=== PATIENT | male | born 1985 | race African-American/Black ===

== ENCOUNTER 2022-04-20 11:51 | Inpatient (IN) | payer OTHER ==
[2022-04-20 12:54] VITALS: BMI 23.0
[2022-04-20] MEDS ORDERED: guaiFENesin 200 MG/10 ML 10 ML UNIT-DOSE CUPS PO PRN (13:17)
[2022-04-20] MEDS ORDERED: MAG HYDROX/AL HYDROX/SIMETH 30 ML UNIT-DOSE CUP PO PRN (13:17)
[2022-04-20] MEDS ORDERED: P-EPHED 60MG/TRIPROLIDI 2.5MG TABLET PO PRN (13:17)
[2022-04-20] MEDS ORDERED: NICOTINE 10 MG CARTRIDGE (INHALER) IH PRN (13:17)
[2022-04-20] MEDS ORDERED: ACETAMINOPHEN 325 MG TABLET (FP) PO PRN (13:17)
[2022-04-20] MEDS ORDERED: BENZOCAINE/MENTHOL (CHLORASEPTIC ) LOZENGE MM PRN (13:17)
[2022-04-20] MEDS ORDERED: IBUPROFEN 400 MG TABLET (FP) PO PRN (13:17)
[2022-04-20] MEDS ORDERED: LOPERAMIDE HCL 2 MG CAPSULE PO PRN (13:17)
[2022-04-20] MEDS ORDERED: POLYETHYLENE GLYCOL (HEALTHYLAX) 3350 17 GM PACKET PO PRN (13:17)
[2022-04-20] MEDS ORDERED: MAGNESIUM HYDROX 2400MG/30ML ORAL SUSPENSION 30 ML CUP PO PRN (13:17)
[2022-04-20] MEDS ORDERED: TUBERCULIN PPD 5 TU/0.1ML VIAL ID ONE (18:59)
[2022-04-20] MEDS: PRENATAL VITAMINS W/ FOLIC ACID TABLET (FP) PO SCH (19:10)
[2022-04-20] MEDS: THIAMINE HCL 100 MG TABLET (FP) PO SCH (21:53)
[2022-04-20] MEDS: MELATONIN 5 MG TABLETS PO SCH (21:53)
[2022-04-21] MEDS: PRENATAL VITAMINS W/ FOLIC ACID TABLET (FP) PO SCH (09:56)
[2022-04-21] MEDS ORDERED: PATIENT'S OWN MEDICATION (NON-FORMULARY) (Dolutegravir Sodium/Lamivudine [Dovato 50-300 Mg PO SCH (10:45)
[2022-04-21 11:28] LABS: HEMATOCRIT 40.5 % (35.4-49); HEMOGLOBIN 13.7 GM/dL (11.7-16.9); MCH 29.8 pg (25.7-33.7); MCHC 33.9 g/dl (32.0-35.9); MEAN CELL VOLUME 88.1 fl (80-96); PLATELET COUNT 298 10^3/uL (134-434); RDW 14.8 % (11.9-15.9); WHITE BLOOD COUNT 4.2 K/mm3 (4.0-10.0)
[2022-04-21 11:38] LABS: CALCIUM 8.9 mg/dL (8.5-10.1)
[2022-04-21 11:39] LABS: ALBUMIN 3.4 g/dl (3.4-5.0); BLOOD UREA NITROGEN 9.8 mg/dL (7-18)
[2022-04-21 11:43] LABS: BILIRUBIN,TOTAL 0.7 mg/dL (0.2-1); TOT PROT 6.6 g/dl (6.4-8.2)
[2022-04-21] MEDS ORDERED: DOLUTEGRAVIR SODIUM 50 MG TABLET (NON-FORMULARY) PO ONE (12:00)
[2022-04-21 12:05] LABS: SYPHILIS W/ RPR CONF NON-REACTIVE (NONREACTIVE)
[2022-04-21] MEDS: FLUoxetine HCL 20 MG CAPSULE PO SCH (12:08)
[2022-04-21] MEDS: HYDROCHLOROTHIAZIDE 12.5 MG CAPSULE (FP) PO SCH (12:08)
[2022-04-21] MEDS: PROGESTERONE PO SCH (12:38)
[2022-04-21] MEDS: [UNRECOGNIZED DRUG - OTHER] PO SCH (12:38)
[2022-04-21 17:43] LABS: EPI CELLS >36 /uL (0-25.1); HYALINE CASTS 25 /uL (0-3.1); PH,URINE 5.5 (5.0-8.0); URINE APPEARANCE CLOUDY; URINE BACTERIA 1378 /uL (0-1359); URINE BILIRUBIN NEGATIVE (NEGATIVE); URINE COLOR YELLOW; URINE GLUCOSE (UA) NEGATIVE (NEGATIVE); URINE KETONE TRACE (NEGATIVE); URINE LEUK ESTERASE 1+ (NEGATIVE); URINE NITRITE NEGATIVE (NEGATIVE); URINE PROTEIN 1+ (NEGATIVE); URINE RBC 15 /uL (0-23.9); URINE UROBILINOGEN 0.2 mg/dL (0.2-1.0); URINE WBC 357 /uL (0-25.8)
[2022-04-21] MEDS: MELATONIN 5 MG TABLETS PO SCH (21:46)
[2022-04-21] MEDS: THIAMINE HCL 100 MG TABLET (FP) PO SCH (21:46)
[2022-04-21] MEDS: hydrOXYzine PAMOATE 25 MG CAPSULE (FP) PO PRN (21:47)
[2022-04-22] MEDS: DOLUTEGRAVIR SODIUM 50 MG TABLET (NON-FORMULARY) PO SCH (07:02)
[2022-04-22] MEDS: [UNRECOGNIZED DRUG - OTHER] PO SCH (10:33)
[2022-04-22] MEDS: PRENATAL VITAMINS W/ FOLIC ACID TABLET (FP) PO SCH (10:33)
[2022-04-22] MEDS: PROGESTERONE PO SCH (10:33)
[2022-04-22] MEDS: HYDROCHLOROTHIAZIDE 12.5 MG CAPSULE (FP) PO SCH (10:33)
[2022-04-22] MEDS: FLUoxetine HCL 20 MG CAPSULE PO SCH (10:34)
[2022-04-22] MEDS: THIAMINE HCL 100 MG TABLET (FP) PO SCH (21:39)
[2022-04-22] MEDS: MELATONIN 5 MG TABLETS PO SCH (21:39)
[2022-04-22] MEDS: hydrOXYzine PAMOATE 25 MG CAPSULE (FP) PO PRN (21:39)
[2022-04-23] MEDS: DOLUTEGRAVIR SODIUM 50 MG TABLET (NON-FORMULARY) PO SCH (07:02)
[2022-04-23] MEDS: FLUoxetine HCL 20 MG CAPSULE PO SCH (10:15)
[2022-04-23] MEDS: PRENATAL VITAMINS W/ FOLIC ACID TABLET (FP) PO SCH (10:15)
[2022-04-23] MEDS: PROGESTERONE PO SCH (10:16)
[2022-04-23] MEDS: HYDROCHLOROTHIAZIDE 12.5 MG CAPSULE (FP) PO SCH (10:16)
[2022-04-23] MEDS: [UNRECOGNIZED DRUG - OTHER] PO SCH (10:16)
[2022-04-23] MEDS: hydrOXYzine PAMOATE 25 MG CAPSULE (FP) PO PRN (21:38)
[2022-04-23] MEDS: MELATONIN 5 MG TABLETS PO SCH (21:38)
[2022-04-23] MEDS: THIAMINE HCL 100 MG TABLET (FP) PO SCH (21:38)
[2022-04-24] MEDS: DOLUTEGRAVIR SODIUM 50 MG TABLET (NON-FORMULARY) PO SCH (07:09)
[2022-04-24] MEDS: HYDROCHLOROTHIAZIDE 12.5 MG CAPSULE (FP) PO SCH (09:55)
[2022-04-24] MEDS: PROGESTERONE PO SCH (09:55)
[2022-04-24] MEDS: [UNRECOGNIZED DRUG - OTHER] PO SCH (09:55)
[2022-04-24] MEDS: PRENATAL VITAMINS W/ FOLIC ACID TABLET (FP) PO SCH (09:55)
[2022-04-24] MEDS: FLUoxetine HCL 20 MG CAPSULE PO SCH (09:55)
[2022-04-24] MEDS: MELATONIN 5 MG TABLETS PO SCH (21:42)
[2022-04-24] MEDS: THIAMINE HCL 100 MG TABLET (FP) PO SCH (21:43)
[2022-04-25] MEDS: DOLUTEGRAVIR SODIUM 50 MG TABLET (NON-FORMULARY) PO SCH (10:54)
[2022-04-25] MEDS: PRENATAL VITAMINS W/ FOLIC ACID TABLET (FP) PO SCH (10:55)
[2022-04-25] MEDS: HYDROCHLOROTHIAZIDE 12.5 MG CAPSULE (FP) PO SCH (10:55)
[2022-04-25] MEDS: [UNRECOGNIZED DRUG - OTHER] PO SCH (10:55)
[2022-04-25] MEDS: FLUoxetine HCL 20 MG CAPSULE PO SCH (10:55)
[2022-04-25] MEDS: PROGESTERONE PO SCH (10:55)
[2022-04-25] MEDS: MELATONIN 5 MG TABLETS PO SCH (21:22)
[2022-04-25] MEDS: THIAMINE HCL 100 MG TABLET (FP) PO SCH (21:22)
[2022-04-26] MEDS: DOLUTEGRAVIR SODIUM 50 MG TABLET (NON-FORMULARY) PO SCH (07:04)
[2022-04-26] MEDS: FLUoxetine HCL 20 MG CAPSULE PO SCH (10:14)
[2022-04-26] MEDS: HYDROCHLOROTHIAZIDE 12.5 MG CAPSULE (FP) PO SCH (10:14)
[2022-04-26] MEDS: PRENATAL VITAMINS W/ FOLIC ACID TABLET (FP) PO SCH (10:14)
[2022-04-26] MEDS: [UNRECOGNIZED DRUG - OTHER] PO SCH (10:17)
[2022-04-26] MEDS: PROGESTERONE PO SCH (10:17)
[2022-04-26] MEDS: MELATONIN 5 MG TABLETS PO SCH (21:35)
[2022-04-26] MEDS: THIAMINE HCL 100 MG TABLET (FP) PO SCH (21:35)
[2022-04-27] MEDS: DOLUTEGRAVIR SODIUM 50 MG TABLET (NON-FORMULARY) PO SCH (07:01)
[2022-04-27] MEDS: PRENATAL VITAMINS W/ FOLIC ACID TABLET (FP) PO SCH (10:20)
[2022-04-27] MEDS: [UNRECOGNIZED DRUG - OTHER] PO SCH (10:21)
[2022-04-27] MEDS: PROGESTERONE PO SCH (10:21)
[2022-04-27] MEDS: FLUoxetine HCL 20 MG CAPSULE PO SCH (10:21)
[2022-04-27] MEDS: HYDROCHLOROTHIAZIDE 12.5 MG CAPSULE (FP) PO SCH (10:21)
[2022-04-27] MEDS: MELATONIN 5 MG TABLETS PO SCH (21:38)
[2022-04-27] MEDS: THIAMINE HCL 100 MG TABLET (FP) PO SCH (21:38)
[2022-04-28] MEDS: DOLUTEGRAVIR SODIUM 50 MG TABLET (NON-FORMULARY) PO SCH (07:14)
[2022-04-28] MEDS: PRENATAL VITAMINS W/ FOLIC ACID TABLET (FP) PO SCH (10:27)
[2022-04-28] MEDS: HYDROCHLOROTHIAZIDE 12.5 MG CAPSULE (FP) PO SCH (10:27)
[2022-04-28] MEDS: FLUoxetine HCL 20 MG CAPSULE PO SCH (10:27)
[2022-04-28] MEDS: ESTRADIOL 2 MG TABLET (NON-FORMULARY) PO SCH (12:23)
[2022-04-28] MEDS: PROGESTERONE PO SCH (12:24)
[2022-04-28] MEDS: [UNRECOGNIZED DRUG - OTHER] PO SCH (12:24)
[2022-04-28] MEDS: MELATONIN 5 MG TABLETS PO SCH (21:31)
[2022-04-28] MEDS: THIAMINE HCL 100 MG TABLET (FP) PO SCH (21:31)
[2022-04-29] MEDS: DOLUTEGRAVIR SODIUM 50 MG TABLET (NON-FORMULARY) PO SCH (08:00)
[2022-04-29] MEDS: PRENATAL VITAMINS W/ FOLIC ACID TABLET (FP) PO SCH (10:30)
[2022-04-29] MEDS: FLUoxetine HCL 20 MG CAPSULE PO SCH (10:30)
[2022-04-29] MEDS: HYDROCHLOROTHIAZIDE 12.5 MG CAPSULE (FP) PO SCH (10:31)
[2022-04-29] MEDS: [UNRECOGNIZED DRUG - OTHER] PO SCH (11:37)
[2022-04-29] MEDS: PROGESTERONE PO SCH (11:37)
[2022-04-29] MEDS: THIAMINE HCL 100 MG TABLET (FP) PO SCH (21:29)
[2022-04-29] MEDS: MELATONIN 5 MG TABLETS PO SCH (21:29)
[2022-04-30] MEDS: DOLUTEGRAVIR SODIUM 50 MG TABLET (NON-FORMULARY) PO SCH (07:05)
[2022-04-30] MEDS: PRENATAL VITAMINS W/ FOLIC ACID TABLET (FP) PO SCH (09:55)
[2022-04-30] MEDS: FLUoxetine HCL 20 MG CAPSULE PO SCH (09:55)
[2022-04-30] MEDS: HYDROCHLOROTHIAZIDE 12.5 MG CAPSULE (FP) PO SCH (09:55)
[2022-04-30] MEDS: [UNRECOGNIZED DRUG - OTHER] PO SCH (11:08)
[2022-04-30] MEDS: PROGESTERONE PO SCH (11:08)
[2022-04-30] MEDS: MELATONIN 5 MG TABLETS PO SCH (21:10)
[2022-04-30] MEDS: THIAMINE HCL 100 MG TABLET (FP) PO SCH (21:10)
[2022-05-01] MEDS: DOLUTEGRAVIR SODIUM 50 MG TABLET (NON-FORMULARY) PO SCH (07:19)
[2022-05-01] MEDS: PRENATAL VITAMINS W/ FOLIC ACID TABLET (FP) PO SCH (10:10)
[2022-05-01] MEDS: FLUoxetine HCL 20 MG CAPSULE PO SCH (10:10)
[2022-05-01] MEDS: HYDROCHLOROTHIAZIDE 12.5 MG CAPSULE (FP) PO SCH (10:10)
[2022-05-01] MEDS ORDERED: PROGESTERONE 100 MG PO ONE (12:20)
[2022-05-01] MEDS: [UNRECOGNIZED DRUG - OTHER] PO SCH (12:47)
[2022-05-01] MEDS: PROGESTERONE PO SCH (12:47)
[2022-05-01] MEDS: THIAMINE HCL 100 MG TABLET (FP) PO SCH (21:32)
[2022-05-01] MEDS: MELATONIN 5 MG TABLETS PO SCH (21:32)
[2022-05-02] MEDS: DOLUTEGRAVIR SODIUM 50 MG TABLET (NON-FORMULARY) PO SCH (07:12)
[2022-05-02] MEDS: PRENATAL VITAMINS W/ FOLIC ACID TABLET (FP) PO SCH (10:30)
[2022-05-02] MEDS: FLUoxetine HCL 20 MG CAPSULE PO SCH (10:30)
[2022-05-02] MEDS: HYDROCHLOROTHIAZIDE 12.5 MG CAPSULE (FP) PO SCH (10:30)
[2022-05-02] MEDS: PROGESTERONE 100 MG PO SCH (10:30)
[2022-05-02] MEDS: MELATONIN 5 MG TABLETS PO SCH (21:15)
[2022-05-02] MEDS: THIAMINE HCL 100 MG TABLET (FP) PO SCH (21:15)
[2022-05-03] MEDS: DOLUTEGRAVIR SODIUM 50 MG TABLET (NON-FORMULARY) PO SCH (07:46)
[2022-05-03] MEDS: HYDROCHLOROTHIAZIDE 12.5 MG CAPSULE (FP) PO SCH (10:15)
[2022-05-03] MEDS: PRENATAL VITAMINS W/ FOLIC ACID TABLET (FP) PO SCH (10:15)
[2022-05-03] MEDS: FLUoxetine HCL 20 MG CAPSULE PO SCH (10:16)
[2022-05-03] MEDS: PROGESTERONE 100 MG PO SCH (10:16)
[2022-05-03] MEDS: THIAMINE HCL 100 MG TABLET (FP) PO SCH (21:30)
[2022-05-03] MEDS: MELATONIN 5 MG TABLETS PO SCH (21:30)
[2022-05-04] MEDS: PROGESTERONE 100 MG PO SCH (09:50)
[2022-05-04] MEDS: FLUoxetine HCL 20 MG CAPSULE PO SCH (09:50)
[2022-05-04] MEDS: PRENATAL VITAMINS W/ FOLIC ACID TABLET (FP) PO SCH (09:50)
[2022-05-04] MEDS: HYDROCHLOROTHIAZIDE 12.5 MG CAPSULE (FP) PO SCH (09:50)
[2022-05-04] MEDS: DOLUTEGRAVIR SODIUM 50 MG TABLET (NON-FORMULARY) PO SCH (09:51)
[2022-05-04] MEDS: THIAMINE HCL 100 MG TABLET (FP) PO SCH (21:47)
[2022-05-04] MEDS: MELATONIN 5 MG TABLETS PO SCH (21:47)
[2022-05-05] MEDS: DOLUTEGRAVIR SODIUM 50 MG TABLET (NON-FORMULARY) PO SCH (07:27)
[2022-05-05] MEDS: PRENATAL VITAMINS W/ FOLIC ACID TABLET (FP) PO SCH (10:26)
[2022-05-05] MEDS: HYDROCHLOROTHIAZIDE 12.5 MG CAPSULE (FP) PO SCH (10:27)
[2022-05-05] MEDS: FLUoxetine HCL 20 MG CAPSULE PO SCH (10:27)
[2022-05-05] MEDS: ESTRADIOL 2 MG TABLET (NON-FORMULARY) PO SCH (10:28)
[2022-05-05] MEDS: PROGESTERONE 100 MG PO SCH (10:28)
[2022-05-05] MEDS: MELATONIN 5 MG TABLETS PO SCH (21:21)
[2022-05-05] MEDS: THIAMINE HCL 100 MG TABLET (FP) PO SCH (21:21)
[2022-05-06] MEDS: DOLUTEGRAVIR SODIUM 50 MG TABLET (NON-FORMULARY) PO SCH (07:21)
[2022-05-06] MEDS: FLUoxetine HCL 20 MG CAPSULE PO SCH (10:18)
[2022-05-06] MEDS: HYDROCHLOROTHIAZIDE 12.5 MG CAPSULE (FP) PO SCH (10:18)
[2022-05-06] MEDS: PRENATAL VITAMINS W/ FOLIC ACID TABLET (FP) PO SCH (10:18)
[2022-05-06] MEDS: PROGESTERONE 100 MG PO SCH (11:59)
[2022-05-06] MEDS: MELATONIN 5 MG TABLETS PO SCH (21:16)
[2022-05-06] MEDS: THIAMINE HCL 100 MG TABLET (FP) PO SCH (21:16)
[2022-05-07] MEDS: DOLUTEGRAVIR SODIUM 50 MG TABLET (NON-FORMULARY) PO SCH (07:28)
[2022-05-07] MEDS: PRENATAL VITAMINS W/ FOLIC ACID TABLET (FP) PO SCH (09:50)
[2022-05-07] MEDS: FLUoxetine HCL 20 MG CAPSULE PO SCH (09:50)
[2022-05-07] MEDS: HYDROCHLOROTHIAZIDE 12.5 MG CAPSULE (FP) PO SCH (09:50)
[2022-05-07] MEDS: PROGESTERONE 100 MG PO SCH (09:51)
[2022-05-07] MEDS: THIAMINE HCL 100 MG TABLET (FP) PO SCH (22:33)
[2022-05-07] MEDS: MELATONIN 5 MG TABLETS PO SCH (22:33)
[2022-05-08] MEDS: DOLUTEGRAVIR SODIUM 50 MG TABLET (NON-FORMULARY) PO SCH (07:00)
[2022-05-08] MEDS: HYDROCHLOROTHIAZIDE 12.5 MG CAPSULE (FP) PO SCH (10:40)
[2022-05-08] MEDS: FLUoxetine HCL 20 MG CAPSULE PO SCH (10:41)
[2022-05-08] MEDS: PROGESTERONE 100 MG PO SCH (10:41)
[2022-05-08] MEDS: PRENATAL VITAMINS W/ FOLIC ACID TABLET (FP) PO SCH (10:41)
[2022-05-08] MEDS: THIAMINE HCL 100 MG TABLET (FP) PO SCH (21:11)
[2022-05-08] MEDS: MELATONIN 5 MG TABLETS PO SCH (21:11)
[2022-05-09] MEDS: DOLUTEGRAVIR SODIUM 50 MG TABLET (NON-FORMULARY) PO SCH (07:18)
[2022-05-09] MEDS: HYDROCHLOROTHIAZIDE 12.5 MG CAPSULE (FP) PO SCH (10:10)
[2022-05-09] MEDS: FLUoxetine HCL 20 MG CAPSULE PO SCH (10:10)
[2022-05-09] MEDS: PRENATAL VITAMINS W/ FOLIC ACID TABLET (FP) PO SCH (10:10)
[2022-05-09] MEDS: PROGESTERONE 100 MG PO SCH (10:11)
[2022-05-09] MEDS: MELATONIN 5 MG TABLETS PO SCH (21:13)
[2022-05-09] MEDS: THIAMINE HCL 100 MG TABLET (FP) PO SCH (21:13)
[2022-05-10] MEDS: DOLUTEGRAVIR SODIUM 50 MG TABLET (NON-FORMULARY) PO SCH (07:01)
[2022-05-10] MEDS: PRENATAL VITAMINS W/ FOLIC ACID TABLET (FP) PO SCH (09:54)
[2022-05-10] MEDS: FLUoxetine HCL 20 MG CAPSULE PO SCH (09:54)
[2022-05-10] MEDS: HYDROCHLOROTHIAZIDE 12.5 MG CAPSULE (FP) PO SCH (09:54)
[2022-05-10] MEDS: PROGESTERONE 100 MG PO SCH (09:55)
[2022-05-10] MEDS: THIAMINE HCL 100 MG TABLET (FP) PO SCH (21:51)
[2022-05-10] MEDS: MELATONIN 5 MG TABLETS PO SCH (21:51)
[2022-05-11] MEDS: DOLUTEGRAVIR SODIUM 50 MG TABLET (NON-FORMULARY) PO SCH (07:08)
[2022-05-11 08:06] VITALS: BP 125/73; PULSE 67; RESP 16; TEMP 98.2
[2022-05-11] MEDS: PRENATAL VITAMINS W/ FOLIC ACID TABLET (FP) PO SCH (09:27)
[2022-05-11] MEDS: HYDROCHLOROTHIAZIDE 12.5 MG CAPSULE (FP) PO SCH (09:27)
[2022-05-11] MEDS: FLUoxetine HCL 20 MG CAPSULE PO SCH (09:27)
[2022-05-11] MEDS: PROGESTERONE 100 MG PO SCH (09:28)
== END 2022-05-11 10:10 | disposition home or self-care (01) | DRG 772 ==
LOC: YASAS 11:51 → Y5N 16:08
PROVIDERS: ADMIT Allergy & Immunology; ATTEND Psychiatry & Neurology Pain Medicine
PROC: HZ42ZZZ Group Counseling for Substance Abuse Treatment, Cognitive-Behavioral (ICD-10-PCS; principal; 2022-04-20)
DX: F14.20 Cocaine dependence, uncomplicated (principal); F15.20 Other stimulant dependence, uncomplicated; F12.20 Cannabis dependence, uncomplicated; F17.210 Nicotine dependence, cigarettes, uncomplicated; F19.282 Other psychoactive substance dependence with psychoactive substance-induced sleep disorder; F33.0 Major depressive disorder, recurrent, mild; F41.8 Other specified anxiety disorders; F64.0 Transsexualism; B20 Human immunodeficiency virus [HIV] disease; Z79.899 Other long term (current) drug therapy; I10 Essential (primary) hypertension; Z62.810 Personal history of physical and sexual abuse in childhood; Z91.410 Personal history of adult physical and sexual abuse; Z79.890 Hormone replacement therapy
CPT/HCPCS: 36415; 80053; 81003; 85027; 86780; 86803; 93005; 93010; C9803-CS; U0003; U0005